=== PATIENT | male | born 1930 | race Caucasian/White ===

== ENCOUNTER 2020-03-22 14:14 | Inpatient (IN) ==
[2020-03-22] MEDS ORDERED: NS 0.9% 1000 ml BAG 1,000 ML IV ONE (14:32)
[2020-03-22] MEDS ORDERED: Pantoprazole VIAL 40 MG VIAL IV ONE (14:47)
[2020-03-22 15:36] LABS: Hematocrit 34 % (42-52); Hemoglobin 11.2 g/dL (14.0-18.0); Mean Corpuscular HGB Conc 33 g/dL (31-36); Mean Corpuscular Hemoglobin 33 pg (27-31); Mean Corpuscular Volume 99 fL (80-94); Red Blood Count 3.44 10^6 /uL (4.18-5.48); Red Cell Distribution Width 18 % (10-15); White Blood Count 11.6 10^3/uL (3.5-10.8)
[2020-03-22 15:54] LABS: Ammonia 22 mcmol/L (16-53)
[2020-03-22 15:55] LABS: ALT 8 U/L (7-52); AST 16 U/L (13-39); Activated Partial Thrombo Time 53.5 seconds (26.0-38.0); Albumin 2.2 g/dL (3.2-5.2); Albumin/Globulin Ratio 1.4 (1-3); Alkaline Phosphatase 112 U/L (34-104); Anion Gap 10 mmol/L (2-11); C Reactive Protein 106.61 mg/L (<8.01); CO2 Carbon Dioxide 22 mmol/L (22-32); Calcium 7.4 mg/dL (8.6-10.3); Chloride 108 mmol/L (101-111); EGFR Non-African American 23.9 (>60); Globulin 1.6 g/dL (2-4); Glucose 99 mg/dL (70-100); INR 4.45 (0.82-1.09); Lipase < 10 U/L (11.0-82.0); Potassium 4.8 mmol/L (3.5-5.0); Sodium 140 mmol/L (135-145); Total Protein 3.8 g/dL (6.4-8.9)
[2020-03-22 15:57] LABS: ABS Lymphocytes 0.3 10^3/ul (1.0-4.8); ABS Monocytes 0.3 10^3/ul (0-0.8); Eosinophil % 0.1 %; Lymphocyte % 2.6 %; Mean Platelet Volume 11.4 fL (7.4-10.4); Platelet Count 87 10^3/uL (150-450)
[2020-03-22 15:59] LABS: BNP 1277 pg/mL (<=100)
[2020-03-22 16:29] LABS: Troponin I 0.03 ng/mL (<0.03)
[2020-03-22] MEDS ORDERED: Lactated Ringers 1000 ml BAG 1,000 ML IV SCH (17:00)
[2020-03-22] MEDS ORDERED: Pantoprazole 80 mg in NS BAG 80 MG/250 ML BAG IV SCH (17:00)
[2020-03-22 19:01] LABS: BUN/Creatinine Ratio 52.5 (8-20); Blood Urea Nitrogen 134 mg/dL (6-24)
[2020-03-22] MEDS ORDERED: Morphine 2 MG/ML SYRINGE IV PRN (19:14)
[2020-03-22] MEDS ORDERED: Morphine 2 MG/ML SYRINGE ONE (19:18)
[2020-03-22] MEDS ORDERED: Mupirocin 2% OINT TUBE TOPICAL SCH (21:00)
[2020-03-22] MEDS ORDERED: fentaNYL INFUSION 50 MCG/ML 2,500 MCG/50 ML BAG IV SCH (21:00)
[2020-03-23] MEDS ORDERED: Lorazepam PYXIS KEY PRN (13:45)
[2020-03-23] MEDS ORDERED: LORazepam 2 mg VIAL 1 ml IV PUSH PRN (13:45)
[2020-03-23] MEDS ORDERED: Ondansetron 4 mg VIAL 2 MG/ML 2 ml VIAL IV PRN (13:46)
[2020-03-23 15:12] VITALS: BP 60/28
== END 2020-03-23 15:44 | disposition expired | DRG 378 ==
LOC: ED 14:14 → ICU 16:46
PROVIDERS: ADMIT Internal Medicine Critical Care Medicine; ATTEND Internal Medicine Critical Care Medicine